=== PATIENT | female | born 1980 | race Caucasian/White ===

== ENCOUNTER 2017-09-24 09:31 | Emergency (ER) | payer MEDICAID, OTHER ==
[2017-09-24 09:42] VITALS: BP 104/51
[2017-09-24 10:06] LABS: Hematocrit 40.1 % (30.3-42.9); Hemoglobin 13.6 gm/dl (10.1-14.3); Mean Corpuscular HGB Conc 34 % (30-34); Mean Corpuscular Hemoglobin 31 pg (28-32); Mean Corpuscular Volume 91 fl (79-97); Platelet Count 268 K/mm3 (140-440); Red Blood Count 4.42 M/mm3 (3.65-5.03); Red Cell Distribution Width 13.2 % (13.2-15.2)
[2017-09-24 10:25] LABS: Bacteria,Urine 2+ /HPF (Negative); Bilirubin,Urine NEG (Negative); Blood,Urine NEG (Negative); Mucus,Urine 3+ /HPF; Nitrite,Urine NEG (Negative)
[2017-09-24 10:27] LABS: Alanine Aminotransferase 12 units/L (7-56); Albumin 4.4 g/dL (3.9-5); BUN/Creatinine Ratio 20; Blood Urea Nitrogen 14 mg/dL (7-17); Calcium 9.2 mg/dL (8.4-10.2); Hemolysis Index 8
[2017-09-24 10:28] LABS: Color,Urine Yellow (Yellow)
[2017-09-24 10:41] LABS: Basophils % (Manual) 0 % (0.0-1.8); Eosinophils % (Manual) 0 % (0.0-4.3); RBC Morphology Normal; Total Cells Counted 100
--- NOTE | 2017-09-24 11:01 | Emergency Department Report ---
ED Abdominal Pain HPI - General Chief Complaint: Nausea/Vomiting/Diarrhea Stated Complaint: ABD. PAIN Time Seen by Provider: 09/24/17 10:19 Source: patient Mode of arrival: Ambulatory Limitations: No Limitations - History of Present Illness Initial Comments: Patient is a 24-year-old with a parents emergency room with nausea, vomiting, diarrhea and of the abdominal pain 4-5 days. Patient states she is unable to hold anything down and as soon as she takes by mouth intake she vomits. Patient states the diarrhea was the first symptom. Patient states she had a fever for the first 3 days. Patient states that she has stones in her gallbladder but has not had it removed or treated. Patient states that the abdominal pain is generalized and in all 4 quadrants but pain below her bellybutton in her bilateral lower quadrant is worse. Patient states the pain is better with rest and being nothing by mouth. She states the pain is worse with vomiting. She states the possibility of , LMP - 08/21/2017... Complaint: abdominal pain -: Sudden, days(s) - Related Data Previous Rx's Medication Instructions Recorded Last Taken Type Amoxicillin [Amoxicillin TAB] 875 mg PO BID 10 Days #20 tablet 09/24/17 Unknown Rx Ondansetron [Zofran Odt] 4 mg PO Q8HR PRN #20 tab.rapdis 09/24/17 Unknown Rx Allergies Allergy/AdvReac Type Severity Reaction Status Date / Time No Known Allergies Allergy Unverified 09/13/16 14:18 ED Review of Systems ROS: Stated complaint: ABD. PAIN Other details as noted in HPI Constitutional: fever. denies: chills Eyes: denies: eye pain, eye discharge, vision change ENT: denies: ear pain, throat pain Respiratory: denies: cough, shortness of breath, wheezing Cardiovascular: denies: chest pain, palpitations Endocrine: no symptoms reported Gastrointestinal: abdominal pain, nausea, vomiting, diarrhea Genitourinary: denies: urgency, dysuria, discharge Musculoskeletal: denies: back pain, joint swelling, arthralgia Skin: denies: rash, lesions Neurological: denies: headache, weakness, paresthesias Psychiatric: denies: anxiety, depression Hematological/Lymphatic: denies: easy bleeding, easy bruising ED Past Medical Hx - Past Medical History Previous Medical History?: No - Surgical History Past Surgical History?: Yes Additional Surgical History: - Family History Family history: hypertension - Social History Smoking Status: Current Some Day Smoker Substance Use Type: None - Medications Home Medications: Home Medications Medication Instructions Recorded Confirmed Last Taken Type Amoxicillin [Amoxicillin TAB] 875 mg PO BID 10 Days #20 tablet 09/24/17 Unknown Rx Ondansetron [Zofran Odt] 4 mg PO Q8HR PRN #20 tab.rapdis 09/24/17 Unknown Rx ED Physical Exam - General Limitations: No Limitations General appearance: alert, in no apparent distress - Head Head exam: Present: atraumatic, normocephalic - Eye Eye exam: Present: normal appearance - ENT ENT exam: Present: mucous membranes moist - Neck Neck exam: Present: normal inspection - Respiratory Respiratory exam: Present: normal lung sounds bilaterally. Absent: respiratory distress - Cardiovascular Cardiovascular Exam: Present: regular rate, normal rhythm. Absent: systolic murmur, diastolic murmur, rubs, gallop - GI/Abdominal GI/Abdominal exam: Present: soft, tenderness (tenderness in all 4 quadrants), normal bowel sounds - Extremities Exam Extremities exam: Present: normal inspection - Back Exam Back exam: Present: normal inspection - Neurological Exam Neurological exam: Present: alert, oriented X3 - Psychiatric Psychiatric exam: Present: normal affect, normal mood - Skin Skin exam: Present: warm, dry, intact, normal color. Absent: rash ED Course Vital Signs 09/24/17 09:39 Temperature 97.8 F Pulse Rate 82 Respiratory 16 Rate Blood Pressure 104/51 O2 Sat by Pulse 99 Oximetry ED Medical Decision Making - Lab Data Result diagrams: 09/24/17 09:54 09/24/17 09:54 - Radiology Data Radiology results: report reviewed Stat abdominal ultrasound within normal limits with no acute findings. Transvaginal OB ultrasound positive for intrauterine at 5 weeks 5 days with cardiac activity. - Medical Decision Making All labs and diagnostics reviewed and I discussed with patient. Urine positive for UTI. She is stable for discharge. Patient instructed to take meds as directed and follow-up with PCP and CHECKOUT OPERATOR as soon as possible. Patient increase water and start vitamin. - Differential Diagnosis uti, abd pain, . Critical care attestation.: If time is entered above; I have spent that time in minutes in the direct care of this critically ill patient, excluding procedure time. ED Disposition Clinical Impression: Fever, Abdominal pain, Nausea vomiting and diarrhea, , Gastroenteritis Disposition: [id number] TO HOME OR SELFCARE Is pt being admited?: No Does the pt Need Aspirin: No Condition: Stable Instructions: (ED), Urinary Tract Infection in Women (ED), Acute Nausea and Vomiting (ED), Abdominal Pain (ED) Additional Instructions: Patient follow up with PCP and CHECKOUT OPERATOR within 3-5 days. Patient to take Tylenol when necessary. No NSAIDs. Patient to return to ER if condition worsens. She did take prescription medication as directed. Increase water. He is to start vitamin. Prescriptions: Amoxicillin [Amoxicillin TAB] 875 mg PO BID 10 Days #20 tablet Ondansetron [Zofran Odt] 4 mg PO Q8HR PRN #20 tab.rapdis PRN Reason: Nausea And Vomiting Referrals: UNIQUE ANDRADE MD [Primary Care Provider] - 3-5 Days Time of Disposition: 15:35
[2017-09-24 11:27] LABS: Lipase 24 units/L (13-60)
--- NOTE | 2017-09-24 13:41 | Ultrasound Report ---
FINAL REPORT PROCEDURE: US ABDOMEN COMPLETE TECHNIQUE: Real-time sonography in multiple planes of the abdomen was performed with image documentation. CPT 52221 HISTORY: abd pain COMPARISON: No prior studies are available for comparison. FINDINGS: Liver: Normal size and echotexture with no evidence of cystic or solid mass lesions. Gallbladder: Fluid filled. No gallstones, wall thickening, pericholecystic fluid, or sonographic Rivera's sign. Intrahepatic bile ducts: Normal caliber . Extrahepatic bile ducts: Common bile duct measures 3 millimeters in caliber. Pancreas: Normal as visualized with suboptimal depiction of the pancreatic tail. IVC: Visualized portions appear normal. RIGHT kidney: Right renal cortical echogenicity is isoechoic to the liver which can be normal variant or related to medical renal disease. No focal renal mass, calculus, or hydronephrosis. Length: 10.4cm. LEFT kidney: No focal renal mass, calculus, or hydronephrosis . Length: 11.3cm. Spleen: Normal size and echotexture. No focal lesions. Intraperitoneal fluid: None . Other: None . IMPRESSION: No acute abnormality. Renal cortical echogenicity is isoechoic to the liver, which can be normal variant or related to medical renal disease.
--- NOTE | 2017-09-24 13:47 | Ultrasound Report ---
FINAL REPORT PROCEDURE: US OB TRANSVAGINAL and transabdominal TECHNIQUE: Real-time transabdominal and transvaginal sonography of the uterus, placenta, amniotic fluid, adnexa, and fetus was performed with image documentation. Measurements were obtained to determine age/size. M-mode Doppler was used to document heartbeat. CPT 34587 and 34898 HISTORY: abd pain, pos hcg COMPARISON: 09/13/2016 FINDINGS: ADDITIONAL GESTATION: None. CRL: 2.2 mm, which corresponds to a gestational age of: 5 weeks, 5 days. Yolk Sac: Normal. Embryonic Cardiac Activity: 98 Gestational Sac: Normal. Amniotic fluid: Normal. Cervix: Nabothian cysts are noted. No endocervical fluid or funneling is noted. No measurement is obtained Right Ovary: 2.8 centimeter cyst is present. 2.2 centimeter hypoechoic lesion is present, possibly a solid lesion or complex cyst Left Ovary: Normal. IMPRESSION: [place]-rump length is decreased in size compared to the prior study. cardiac activity is identified on the current exam, with a heart rate of 98 beats per minute. Recommend close clinical and sonographic follow-up.
--- NOTE | 2017-09-24 13:47 | Ultrasound Report ---
FINAL REPORT PROCEDURE: US OB TRANSVAGINAL and transabdominal TECHNIQUE: Real-time transabdominal and transvaginal sonography of the uterus, placenta, amniotic fluid, adnexa, and fetus was performed with image documentation. Measurements were obtained to determine age/size. M-mode Doppler was used to document heartbeat. CPT 39981 and 50992 HISTORY: abd pain, pos hcg COMPARISON: 09/13/2016 FINDINGS: ADDITIONAL GESTATION: None. CRL: 2.2 mm, which corresponds to a gestational age of: 5 weeks, 5 days. Yolk Sac: Normal. Embryonic Cardiac Activity: 98 Gestational Sac: Normal. Amniotic fluid: Normal. Cervix: Nabothian cysts are noted. No endocervical fluid or funneling is noted. No measurement is obtained Right Ovary: 2.8 centimeter cyst is present. 2.2 centimeter hypoechoic lesion is present, possibly a solid lesion or complex cyst Left Ovary: Normal. IMPRESSION: [place]-rump length is decreased in size compared to the prior study. cardiac activity is identified on the current exam, with a heart rate of 98 beats per minute. Recommend close clinical and sonographic follow-up. PROCEDURE: TECHNIQUE: HISTORY: COMPARISON: FINDINGS: IMPRESSION:
[2017-09-24] MEDS ORDERED: ZOFRAN ODT PO ONE (15:38)
== END 2017-09-24 15:42 | disposition home or self-care (01) ==
LOC: ED 09:31
DX: O99.611 Diseases of the digestive system complicating pregnancy, first trimester (principal); K52.9 Noninfective gastroenteritis and colitis, unspecified; F17.200 Nicotine dependence, unspecified, uncomplicated; Z3A.01 Less than 8 weeks gestation of pregnancy
CPT/HCPCS: 36415; 76700; 76801; 76817; 80053; 81001; 82150; 83690; 84702; 84703; 85007; 85025; 87400; 99284; Q0162

== ENCOUNTER 2017-10-02 08:23 | Emergency (ER) | payer MEDICAID, OTHER ==
[2017-10-02] MEDS ORDERED: NACL 0.9% 1000 ML 1,000 ML ONE (09:00)
[2017-10-02] MEDS ORDERED: ZOFRAN ONE (09:00)
[2017-10-02] MEDS ORDERED: ZOFRAN IV ONE (09:10)
[2017-10-02] MEDS ORDERED: NACL 0.9% 1000 ML 1,000 ML IV ONE (09:10)
--- NOTE | 2017-10-02 09:29 | Emergency Department Report ---
ED Abdominal Pain HPI - General Chief Complaint: Abdominal Pain Stated Complaint: NAUSEA Time Seen by Provider: 10/02/17 09:30 Source: patient, family Mode of arrival: Ambulatory Limitations: No Limitations - History of Present Illness Initial Comments: Patient here reports that she is having nausea and vomited since 4 AM. She says she's been taking and Zofran for nausea as nauseated vomited with abdominal pain. She says she had lab work and ultrasound done and they told her that she has a urinary tract infection and she was given amoxicillin and Zofran. Patient says she's they can Zofran and she is out of Zofran and she is having nausea. Patient was referred to [facility] which she says she has an appointment with [facility] physician in [place] but she doesn't remember the name but it's for tomorrow. She denies any vaginal bleeding or back pain. Denies any urinary burning frequency urgency. Denies any vaginal discharge. She is also complaining of some dizziness and cramping into her lower abdomen. Patient appears to be very upset in room. She reports that she is 6 weeks . Noted that patient was here on 09/24/2017 and was seen and treated by attending physician. Denies any fever or chills. Denies any cough. Denies any diarrhea. Patient reports that she has been 6 times and only has 2 child. Patient smokes daily. MD Complaint: abdominal pain -: This morning Location: suprapubic Radiation: none Migration to: no migration Severity: moderate Severity scale (0 -10): 6 Quality: cramping Consistency: intermittent Improves With: nothing Worsens With: nothing Context: other (patient is ) Associated Symptoms: nausea, vomiting. denies: diarrhea, fever, chills, constipation, dysuria, hematemesis, hematochezia, melena, hematuria, anorexia, syncope Treatments Prior to Arrival: other (Zofran) - Related Data LMP Date: 07/24/17 ( at 6 weeks) LMP (females 10-50): Previous Rx's Medication Instructions Recorded Last Taken Type Amoxicillin [Amoxicillin TAB] 875 mg PO BID 10 Days #20 tablet 09/24/17 Unknown Rx Ondansetron [Zofran Odt] 4 mg PO Q8HR PRN #20 tab.rapdis 09/24/17 Unknown Rx Clindamycin (Nf) [Clindamycin VAG 100 mg VG QHS 3 Days #3 supp 10/02/17 Unknown Rx SUPPOS] Metoclopramide [Reglan] 10 mg PO Q8H PRN 4 Days #15 tab 10/02/17 Unknown Rx Miconazole Nitrate [Monistat 3] 1 each VG QAM 3 Days #1 kit 10/02/17 Unknown Rx Nitrofurantoin Monohyd/M-Cryst 100 mg PO Q12H 7 Days #14 capsule 10/02/17 Unknown Rx [Macrobid 100 mg Capsule] Allergies Allergy/AdvReac Type Severity Reaction Status Date / Time No Known Allergies Allergy Unverified 09/13/16 14:18 ED Review of Systems ROS: Stated complaint: NAUSEA Other details as noted in HPI Comment: All other systems reviewed and negative Constitutional: no symptoms reported Eyes: denies: eye pain, eye discharge, vision change ENT: denies: throat pain, congestion Respiratory: no symptoms reported Cardiovascular: denies: chest pain, palpitations, dyspnea on exertion, orthopnea , edema, syncope, paroxysmal nocturnal dyspnea Gastrointestinal: abdominal pain, nausea, vomiting. denies: diarrhea, constipation, hematemesis, melena, hematochezia Genitourinary: denies: urgency, dysuria, frequency, hematuria, discharge, dyspareunia Musculoskeletal: denies: back pain, joint swelling, arthralgia, myalgia Skin: denies: rash Neurological: other (she reports dizziness because she says she is vomiting and not able to keep anything down.). denies: headache, weakness, numbness, paresthesias, confusion, abnormal gait ED Past Medical Hx - Past Medical History Previous Medical History?: No - Surgical History Past Surgical History?: Yes Additional Surgical History: - Family History Family history: no significant - Social History Smoking Status: Current Every Day Smoker Substance Use Type: None - Medications Home Medications: Home Medications Medication Instructions Recorded Confirmed Last Taken Type Amoxicillin [Amoxicillin TAB] 875 mg PO BID 10 Days #20 tablet 09/24/17 Unknown Rx Ondansetron [Zofran Odt] 4 mg PO Q8HR PRN #20 tab.rapdis 09/24/17 Unknown Rx Clindamycin (Nf) [Clindamycin VAG 100 mg VG QHS 3 Days #3 supp 10/02/17 Unknown Rx SUPPOS] Metoclopramide [Reglan] 10 mg PO Q8H PRN 4 Days #15 tab 10/02/17 Unknown Rx Miconazole Nitrate [Monistat 3] 1 each VG QAM 3 Days #1 kit 10/02/17 Unknown Rx Nitrofurantoin Monohyd/M-Cryst 100 mg PO Q12H 7 Days #14 capsule 10/02/17 Unknown Rx [Macrobid 100 mg Capsule] ED Physical Exam - General Limitations: No Limitations General appearance: alert, in no apparent distress - Head Head exam: Present: atraumatic, normocephalic, normal inspection - Eye Eye exam: Present: normal appearance, PERRL, EOMI Pupils: Present: normal accommodation - ENT ENT exam: Present: normal exam, normal orophraynx, mucous membranes moist - Neck Neck exam: Present: normal inspection, full ROM. Absent: tenderness, meningismus, lymphadenopathy, thyromegaly - Respiratory Respiratory exam: Present: normal lung sounds bilaterally. Absent: respiratory distress, chest wall tenderness, accessory muscle use - Cardiovascular Cardiovascular Exam: Present: regular rate, normal rhythm, normal heart sounds. Absent: systolic murmur, diastolic murmur - GI/Abdominal GI/Abdominal exam: Present: soft, normal bowel sounds. Absent: distended, tenderness, guarding, rebound, rigid, organomegaly, mass, bruit, pulsatile mass , hernia - External exam: Present: normal external exam. Absent: erythema, swelling, lesions, lacerations, ecchymosis, bleeding Speculum exam: Present: vaginal discharge, cervical discharge. Absent: normal speculum exam, erythema, vaginal bleeding, foreign body, tissue, laceration Bi-manual exam: Present: normal bi-manual exam. Absent: cervical motion tendernes, adnexal tenderness, adnexal mass, uterine enlargement, uterine tenderness - Expanded Exam Expanded Female exam: Absent: vaginal laceration, tissue present in vagina, herpetic lesions, vulvar erythema, vulvar tenderness, foreign body External exam: Present: normal Amniotic fluid: Present: none Speculum exam: Present: cervical OS closed - Extremities Exam Extremities exam: Present: normal inspection, full ROM, normal capillary refill , other (no clubbing, cyanosis or edema. +2 pulses to all extremities and no neurovascular compromise). Absent: tenderness, pedal edema, joint swelling, calf tenderness - Back Exam Back exam: Present: normal inspection, full ROM. Absent: tenderness, CVA tenderness (R), CVA tenderness (L), muscle spasm, paraspinal tenderness, vertebral tenderness, rash noted - Neurological Exam Neurological exam: Present: alert, oriented X3, normal gait, reflexes normal. Absent: motor sensory deficit - Psychiatric Psychiatric exam: Present: normal mood, anxious (mild anxiety) - Skin Skin exam: Present: warm, dry, intact, normal color. Absent: rash ED Course Vital Signs 10/02/17 10/02/17 08:30 16:07 Temperature 97.6 F 98.6 F Pulse Rate 86 20 L Respiratory 20 Rate Blood Pressure 132/82 Blood Pressure 104/55 [Left] O2 Sat by Pulse 98 99 Oximetry - Reevaluation(s) Reevaluation #1: 10/02/17 10:03 Patient here for nausea and vomiting and abdominal cramping. IV fluid normal saline infusing, patient given Zofran IV in triage here. Labs ordered and white count is elevated at 11.1 with bacterial shift into the left. Patient had UTI when she was last seen here on 09/24/2017 and she was started on amoxicillin by attending physician. Rocephin 1 g IV ordered. Patient is stable at present. Last ultrasound showed that the patient had intrauterine with heart tone at 98 bpm and radiologist recommended close follow-up as previous ultrasound prior to 09/24/2017 patient with heart tone at 138. Chest still did not follow-up with [facility] and she says she has an appointment with [facility] clinic tomorrow but she cannot tell me which clinic. Reevaluation #2: 10/02/17 12:17 Patient's awaiting ultrasound results. Wet prep and gonorrhea, Chlamydia culture collected. Reevaluation #3: 10/02/17 13:49 Patient reports that she feels slightly nauseous. Ultrasound done and still awaiting results. Still awaiting results of wet prep. Patient to receive Reglan 10 mg IV. Reevaluation #4: 10/02/17 15:15 Patient was less then 20% clue cell and will treat with clindamycin suppository for 3 days. She has used and will treat with Vagistat suppository for 3 days. Patient still with uti and was treated with amoxicillin which she says she took all amoxicillin. I discussed the patient that she still has urinary tract infection and will need to be placed on a different antibiotic. Patient was given Reglan and and she is able to tolerate oral liquids. I discussed her ultrasound report and lab results with her. ED Medical Decision Making - Lab Data Result diagrams: 10/02/17 09:20 10/02/17 09:20 Lab Results 10/02/17 10/02/17 10/02/17 Range/Units 09:18 09:20 09:20 WBC 11.8 H (4.5-11.0) K/mm3 RBC 4.20 (3.65-5.03) M/mm3 Hgb 13.2 (10.1-14.3) gm/dl Hct 38.2 (30.3-42.9) % MCV 91 (79-97) fl MCH 31 (28-32) pg MCHC 35 H (30-34) % RDW 13.1 L (13.2-15.2) % Plt Count 251 (140-440) K/mm3 Lymph % (Auto) 8.0 L (13.4-35.0) % Harlan % (Auto) 3.5 (0.0-7.3) % Eos % (Auto) 0.2 (0.0-4.3) % Baso % (Auto) 0.4 (0.0-1.8) % Lymph # 0.9 L (1.2-5.4) K/mm3 Harlan # 0.4 (0.0-0.8) K/mm3 Eos # 0.0 (0.0-0.4) K/mm3 Baso # 0.0 (0.0-0.1) K/mm3 Seg Neutrophils % 87.9 H (40.0-70.0) % Seg Neutrophils # 10.4 H (1.8-7.7) K/mm3 Sodium 137 (137-145) mmol/L Potassium 4.0 (3.6-5.0) mmol/L Chloride 101.9 (98-107) mmol/L Carbon Dioxide 22 (22-30) mmol/L Anion Gap 17 mmol/L BUN 10 (7-17) mg/dL Creatinine 0.7 (0.7-1.2) mg/dL Estimated GFR > 60 ml/min BUN/Creatinine Ratio 14 % Glucose 113 H (65-100) mg/dL Calcium 8.8 (8.4-10.2) mg/dL Total Bilirubin 0.50 (0.1-1.2) mg/dL AST 12 (5-40) units/L ALT 8 (7-56) units/L Alkaline Phosphatase 49 (35-129) units/L Total Protein 6.9 (6.3-8.2) g/dL Albumin 4.0 (3.9-5) g/dL Albumin/Globulin Ratio 1.4 % HCG, Quant (0-4) mIU/mL Urine Color Ila (Yellow) Urine Turbidity Clear (Clear) Urine pH 5.0 (5.0-7.0) Ur Specific Rosenberg 1.023 (1.003-1.030) Urine Protein 100 mg/dl (Negative) mg/dL Urine Glucose (UA) Neg (Negative) mg/dL Urine Ketones 20 (Negative) mg/dL Urine Blood Sm (Negative) Urine Nitrite Neg (Negative) Urine Bilirubin Neg (Negative) Urine Urobilinogen < 2.0 (<2.0) mg/dL Ur Leukocyte Esterase Lg (Negative) Urine WBC (Auto) 77.0 H (0.0-6.0) /HPF Urine RBC (Auto) 14.0 (0.0-6.0) /HPF U Epithel Cells (Auto) 30.0 H (0-13.0) /HPF Urine Bacteria (Auto) 2+ (Negative) /HPF Urine Mucus 3+ /HPF 10/02/17 Range/Units 09:51 WBC (4.5-11.0) K/mm3 RBC (3.65-5.03) M/mm3 Hgb (10.1-14.3) gm/dl Hct (30.3-42.9) % MCV (79-97) fl MCH (28-32) pg MCHC (30-34) % RDW (13.2-15.2) % Plt Count (140-440) K/mm3 Lymph % (Auto) (13.4-35.0) % Harlan % (Auto) (0.0-7.3) % Eos % (Auto) (0.0-4.3) % Baso % (Auto) (0.0-1.8) % Lymph # (1.2-5.4) K/mm3 Harlan # (0.0-0.8) K/mm3 Eos # (0.0-0.4) K/mm3 Baso # (0.0-0.1) K/mm3 Seg Neutrophils % (40.0-70.0) % Seg Neutrophils # (1.8-7.7) K/mm3 Sodium (137-145) mmol/L Potassium (3.6-5.0) mmol/L Chloride (98-107) mmol/L Carbon Dioxide (22-30) mmol/L Anion Gap mmol/L BUN (7-17) mg/dL Creatinine (0.7-1.2) mg/dL Estimated GFR ml/min BUN/Creatinine Ratio % Glucose (65-100) mg/dL Calcium (8.4-10.2) mg/dL Total Bilirubin (0.1-1.2) mg/dL AST (5-40) units/L ALT (7-56) units/L Alkaline Phosphatase (35-129) units/L Total Protein (6.3-8.2) g/dL Albumin (3.9-5) g/dL Albumin/Globulin Ratio % HCG, Quant 32548 H (0-4) mIU/mL Urine Color (Yellow) Urine Turbidity (Clear) Urine pH (5.0-7.0) Ur Specific Rosenberg (1.003-1.030) Urine Protein (Negative) mg/dL Urine Glucose (UA) (Negative) mg/dL Urine Ketones (Negative) mg/dL Urine Blood (Negative) Urine Nitrite (Negative) Urine Bilirubin (Negative) Urine Urobilinogen (<2.0) mg/dL Ur Leukocyte Esterase (Negative) Urine WBC (Auto) (0.0-6.0) /HPF Urine RBC (Auto) (0.0-6.0) /HPF U Epithel Cells (Auto) (0-13.0) /HPF Urine Bacteria (Auto) (Negative) /HPF Urine Mucus /HPF Urine culture pending Wet prep was less than 20% clue cells, positive yeast and negative Trichomonas Gonorrhea ,chlamydia is pending - Radiology Data Radiology results: report reviewed Patient ultrasound with intrauterine which is viable, single. hearts tones detected at 138 bpm. Please refer to radiology section for further detail. - Medical Decision Making ED course: Romina here reports that she was having nausea and vomiting in an abdominal cramp since 4 AM this morning. She was here on 09/24/2017 and was treated with amoxicillin for urinary tract infection and Zofran for nausea and vomiting. Patient says she is here because she doesn't have any more Zofran and at 4:00 in the morning she started having nausea and vomiting and still with abdominal cramping. Patient was not having any vaginal bleed and no vaginal discharge. Patient was referred to [facility] but she said that she has an appointment tomorrow with an [facility] clinic in [place] but she cannot remember the name. IV fluid normal saline started in triage area and patient given Zofran IV and triage area. She received 1 L of normal saline and 4 mg of Zofran. Patient had pelvic exam done with rep prep results for less than 20% clue cell, few yeast and no Trichomonas. Gonorrhea and chlamydia is pending. Patient quantitative hCG is increased then at a normal level. She is at 7 weeks in 2 days per ultrasound. CBC and chemistries stable and urinalysis with patient having urinary tract infection. Urine culture sent and pending I discussed the patient all diagnosis and treatment plan. I discussed with her her lab results and her ultrasound results. Patient was given additional Reglan 10 mg IV which relieved her nausea and she is able to tolerate liquids orally without any nausea or vomiting. Patient given CD along with print out of lab and ultrasound report to bring to her appointment with her in [place] tomorrow. Patient is a daily smoker and she had told me that she had 6 with 2 miscarriages so I emphasized to her that smoking is one of the major causes of miscarriage and she is considered a threatened miscarriage due to her abdominal pain and she is at high risk for having a miscarriage due to smoking. Smoking cessation encouraged. Patient and given Rocephin 1 g I am an emergency room to cover urinary tract infection and she was discharged home on Macrobid for UTI, clindamycin and suppository for bacterial vaginosis and Monistat 3 for yeast vaginitis. Patient discharged home with her to follow up with [facility] tomorrow and I also gave her information on some [facility]. Patient with mild anxiety but she is much calmer prior to discharge. Critical care attestation.: If time is entered above; I have spent that time in minutes in the direct care of this critically ill patient, excluding procedure time. ED Disposition Clinical Impression: UTI (urinary tract infection) in in first trimester, Abdominal pain during in first trimester, Bacterial vaginosis, Yeast infection of the vagina, Threatened miscarriage in early , High risk due to smoking in first trimester, Nicotine abuse, Proteinuria during Disposition: DC-01 TO HOME OR SELFCARE Is pt being admited?: No Does the pt Need Aspirin: No Condition: Stable Instructions: Bacterial Vaginosis (ED), How to Stop Smoking (ED), Urinary Tract Infection in Women (ED), Vulvovaginal Candidiasis (ED), Secondhand Smoke Exposure in Children (ED), Abdominal Pain (ED) Additional Instructions: Please stop smoking as this can put you at high risk for miscarriage Please follow-up with your [facility] and keep your appointment for tomorrow and bring lab results and ultrasound report along with CD with you Increase her fluid intake Take medication for bacterial vaginosis and vaginal yeast Heart medication for urinary tract infection Reglan as needed for nausea and vomiting If you develop, increase in abdominal pain, fever and/or chills, back pain, swelling to extremities, shortness of breath, vaginal bleeding and return to the emergency room. Your urine had some protein which can have negative effect on urine so if you develop swelling and/or shortness of breath return to the emergency room [facility] Prescriptions: Clindamycin (Nf) [Clindamycin VAG SUPPOS] 100 mg VG QHS 3 Days #3 supp Metoclopramide [Reglan] 10 mg PO Q8H PRN 4 Days #15 tab PRN Reason: Nausea And Vomiting Miconazole Nitrate [Monistat 3] 1 each VG QAM 3 Days #1 kit Nitrofurantoin Monohyd/M-Cryst [Macrobid 100 mg Capsule] 100 mg PO Q12H 7 Days # 14 capsule Referrals: your, [facility] [Other] - 10/03/17 Forms: Accompanied Note, Work/School Release Form(ED)
[2017-10-02 09:35] LABS: Basophils % (Auto) 0.4 % (0.0-1.8); Eosinophils % (Auto) 0.2 % (0.0-4.3); Hematocrit 38.2 % (30.3-42.9); Hemoglobin 13.2 gm/dl (10.1-14.3); Lymphocytes # (Auto) 0.9 K/mm3 (1.2-5.4); Mean Corpuscular HGB Conc 35 % (30-34); Mean Corpuscular Hemoglobin 31 pg (28-32); Mean Corpuscular Volume 91 fl (79-97); Monocytes # (Auto) 0.4 K/mm3 (0.0-0.8); Monocytes % (Auto) 3.5 % (0.0-7.3); Platelet Count 251 K/mm3 (140-440); Red Cell Distribution Width 13.1 % (13.2-15.2)
[2017-10-02 09:55] LABS: Bacteria,Urine 2+ /HPF (Negative); Bilirubin,Urine NEG (Negative); Blood,Urine SM (Negative); Color,Urine Amber (Yellow); Mucus,Urine 3+ /HPF; Nitrite,Urine NEG (Negative); Urobilinogen,Urine < 2.0 mg/dL (<2.0)
[2017-10-02 09:57] LABS: Alanine Aminotransferase 8 units/L (7-56); BUN/Creatinine Ratio 14; Blood Urea Nitrogen 10 mg/dL (7-17); Calcium 8.8 mg/dL (8.4-10.2); Hemolysis Index 3
[2017-10-02] MEDS ORDERED: cefTRIAXone 1 GM in NACL 0.9% 20 ML IV NR (11:00)
[2017-10-02] MEDS ORDERED: REGLAN IV ONE (13:47)
--- NOTE | 2017-10-02 13:57 | Ultrasound Report ---
ULTRASOUND OB LESS THAN 14 WEEKS FETUS ULTRASOUND OB TRANSVAGINAL HISTORY: Abdominal cramps during . COMPARISON: 09/24/17. TECHNIQUE: Transabdominal and transvaginal ultrasound with color doppler interrogation. FINDINGS: Uterus: The uterus is anteverted. The uterus measures 13 x 6 x 8 cm. No uterine mass. There are 3 or 4 small nabothian cysts in the cervix measuring up to 7 mm. Endometrium: An intrauterine gestational sac containing a small pole and yolk sac is identified. Heart rate measures 144 beats per minute. Estimated age on ultrasound is 7 weeks, 2 days. Estimated due date of 05/19/18. A small subchorionic hemorrhage is noted along the inferior border of the gestational sac. Right ovary: 4.0 x 1.9 x 3.9 cm. A 2.5 cm right ovarian cyst is identified. Left ovary: 2.9 x 2.2 x 2.9 cm. No pelvic fluid or mass is identified. Normal color doppler interrogation. IMPRESSION: Viable, single intrauterine as outlined above. Small subchorionic hemorrhage. 2.5 cm right ovarian cyst.
[2017-10-02 16:12] VITALS: BP 104/55
== END 2017-10-02 16:18 | disposition home or self-care (01) ==
LOC: ED 08:23
DX: O20.0 Threatened abortion (principal); O23.41 Unspecified infection of urinary tract in pregnancy, first trimester; O23.591 Infection of other part of genital tract in pregnancy, first trimester; O99.331 Smoking (tobacco) complicating pregnancy, first trimester; O12.11 Gestational proteinuria, first trimester; N39.0 Urinary tract infection, site not specified; R10.9 Unspecified abdominal pain; B37.3 Candidiasis of vulva and vagina; Z3A.01 Less than 8 weeks gestation of pregnancy
CPT/HCPCS: 36415; 76801; 76817; 80053; 81001; 84702; 85025; 87076; 87086; 87186; 87210; 87591; 96361; 96365; 96375; 99285; J0696; J2405; J2765; J7030

== ENCOUNTER 2017-12-26 11:49 | Emergency (ER) | payer MEDICAID ==
[2017-12-26 12:00] VITALS: BP 102/63
[2017-12-26 12:53] LABS: Bacteria,Urine 2+ /HPF (Negative); Bilirubin,Urine NEG (Negative); Blood,Urine NEG (Negative); Color,Urine Amber (Yellow); Mucus,Urine 3+ /HPF
[2017-12-26 12:58] LABS: HCG Qualitative,Urine Negative (Negative)
[2017-12-26] MEDS ORDERED: NACL 0.9% 1000 ML 1,000 ML IV ONE (15:56)
[2017-12-26] MEDS ORDERED: TORADOL IV ONE (15:56)
[2017-12-26] MEDS ORDERED: ZOFRAN IV ONE (15:56)
[2017-12-26] MEDS ORDERED: PEPCID IV ONE (15:56)
--- NOTE | 2017-12-26 15:56 | Emergency Department Report ---
Blank Doc - Documentation Documentation: Patient is a 37-year-old female who is presenting with 3 days of diffuse abdominal pain with nausea vomiting diarrhea. Patient denies any fever or urinary symptoms. Patient states the pain is crampy in nature and constant and is worse in the epigastrium but is present in the bilateral lower quadrants as well. Patient denies .
[2017-12-26 17:06] LABS: Basophils % (Auto) 0.4 % (0.0-1.8); Eosinophils % (Auto) 0.1 % (0.0-4.3); Hemoglobin 13.8 gm/dl (10.1-14.3); Lymphocytes # (Auto) 1.4 K/mm3 (1.2-5.4); Lymphocytes % (Auto) 14.4 % (13.4-35.0); Mean Corpuscular HGB Conc 34 % (30-34); Mean Corpuscular Hemoglobin 31 pg (28-32); Mean Corpuscular Volume 89 fl (79-97); Monocytes # (Auto) 0.3 K/mm3 (0.0-0.8); Monocytes % (Auto) 3.4 % (0.0-7.3); Platelet Count 292 K/mm3 (140-440); Red Blood Count 4.47 M/mm3 (3.65-5.03); Red Cell Distribution Width 14.3 % (13.2-15.2)
--- NOTE | 2017-12-26 17:30 | Emergency Department Report ---
ED Abdominal Pain HPI - General Chief Complaint: Abdominal Pain Stated Complaint: STOMACH PAIN Time Seen by Provider: 12/26/17 15:45 Source: patient Mode of arrival: Wheelchair Limitations: No Limitations - History of Present Illness Initial Comments: This is a 37-year-old female nontoxic, well nourished in appearance, no acute signs of distress presents to the ED with c/o of diffuse abdominal pain with nausea, vomiting and diarrhea x3 days. Patient stated in . She was diagnosed with gallstone. Patient describes abdominal pain as cramping and aching diffusely. Patient stated that symptoms has resolved after receiving zofran in the EMS truck. Patient denies any chest pain, shortness of breathe, fever, chills, stiff neck, headache, numbness, tingling. Patient denies any recent travels or long car rides. Patient denies any allergies or PMH. Patient denies any allergies or PMH. MD Complaint: abdominal pain -: days(s) (3) Location: diffuse Radiation: none Migration to: no migration Severity: mild Severity scale (0 -10): 8 Quality: cramping, aching Consistency: now resolved Improves With: nothing Worsens With: nothing Associated Symptoms: nausea, vomiting, diarrhea. denies: fever, chills, constipation, dysuria, hematemesis, hematochezia, melena, hematuria, anorexia, syncope - Related Data Previous Rx's Medication Instructions Recorded Last Taken Type Amoxicillin [Amoxicillin TAB] 875 mg PO BID 10 Days #20 tablet 09/24/17 Unknown Rx Ondansetron [Zofran Odt] 4 mg PO Q8HR PRN #20 tab.rapdis 09/24/17 Unknown Rx Clindamycin (Nf) [Clindamycin VAG 100 mg VG QHS 3 Days #3 supp 10/02/17 Unknown Rx SUPPOS] Metoclopramide [Reglan] 10 mg PO Q8H PRN 4 Days #15 tab 10/02/17 Unknown Rx Miconazole Nitrate [Monistat 3] 1 each VG QAM 3 Days #1 kit 10/02/17 Unknown Rx Nitrofurantoin Monohyd/M-Cryst 100 mg PO Q12H 7 Days #14 capsule 10/02/17 Unknown Rx [Macrobid 100 mg Capsule] Allergies Allergy/AdvReac Type Severity Reaction Status Date / Time No Known Allergies Allergy Verified 12/26/17 11:57 ED Review of Systems ROS: Stated complaint: STOMACH PAIN Other details as noted in HPI Constitutional: denies: chills, fever Eyes: denies: eye pain, eye discharge, vision change ENT: denies: ear pain, throat pain Respiratory: denies: cough, shortness of breath, wheezing Cardiovascular: denies: chest pain, palpitations Endocrine: no symptoms reported Gastrointestinal: abdominal pain, nausea, vomiting, diarrhea. denies: constipation Genitourinary: denies: urgency, dysuria, discharge Musculoskeletal: denies: back pain, joint swelling, arthralgia Skin: denies: rash, lesions Neurological: denies: headache, weakness, paresthesias Psychiatric: denies: anxiety, depression Hematological/Lymphatic: denies: easy bleeding, easy bruising ED Past Medical Hx - Surgical History Additional Surgical History: - Social History Smoking Status: Current Every Day Smoker Substance Use Type: None - Medications Home Medications: Home Medications Medication Instructions Recorded Confirmed Last Taken Type Amoxicillin [Amoxicillin TAB] 875 mg PO BID 10 Days #20 tablet 09/24/17 Unknown Rx Ondansetron [Zofran Odt] 4 mg PO Q8HR PRN #20 tab.rapdis 09/24/17 Unknown Rx Clindamycin (Nf) [Clindamycin VAG 100 mg VG QHS 3 Days #3 supp 10/02/17 Unknown Rx SUPPOS] Metoclopramide [Reglan] 10 mg PO Q8H PRN 4 Days #15 tab 10/02/17 Unknown Rx Miconazole Nitrate [Monistat 3] 1 each VG QAM 3 Days #1 kit 10/02/17 Unknown Rx Nitrofurantoin Monohyd/M-Cryst 100 mg PO Q12H 7 Days #14 capsule 10/02/17 Unknown Rx [Macrobid 100 mg Capsule] ED Physical Exam - General Limitations: No Limitations General appearance: alert, in no apparent distress - Head Head exam: Present: atraumatic, normocephalic - Eye Eye exam: Present: normal appearance Pupils: Present: normal accommodation - ENT ENT exam: Present: normal exam, mucous membranes moist - Neck Neck exam: Present: normal inspection, full ROM. Absent: tenderness, meningismus - Respiratory Respiratory exam: Present: normal lung sounds bilaterally. Absent: respiratory distress, wheezes, rales, rhonchi, stridor - Cardiovascular Cardiovascular Exam: Present: regular rate, normal rhythm, normal heart sounds. Absent: bradycardia, tachycardia, irregular rhythm, systolic murmur, diastolic murmur, rubs, gallop - GI/Abdominal GI/Abdominal exam: Present: soft, tenderness (diffuse), normal bowel sounds. Absent: distended, guarding, rebound, rigid, diminished bowel sounds - Expanded GI/Abdominal Exam Expanded GI/Abdominal exam: Absent: psoas sign, obturator sign, heel tap sign, Rivera's sign, Rovsing's sign, tenderness at Mcbur[place]'s Point, ascites - Rectal Rectal exam: Present: deferred - Extremities Exam Extremities exam: Present: normal inspection, full ROM, normal capillary refill. Absent: tenderness - Back Exam Back exam: Present: normal inspection, full ROM. Absent: tenderness, CVA tenderness (R), CVA tenderness (L), muscle spasm, paraspinal tenderness, vertebral tenderness, rash noted - Neurological Exam Neurological exam: Present: alert, oriented X3, normal gait - Psychiatric Psychiatric exam: Present: normal affect, normal mood - Skin Skin exam: Present: warm, dry, intact, normal color. Absent: rash ED Course Vital Signs 12/26/17 11:58 Temperature 98 F Pulse Rate 80 Respiratory 18 Rate Blood Pressure 102/63 O2 Sat by Pulse 100 Oximetry - Reevaluation(s) Reevaluation #1: 12/26/17 17:36 Patient is speaking in full sentences with no signs of distress noted. Reevaluation #2: 12/26/17 18:00 Patient is not in the room and was called by RN multiple times to phone listed with no answer. ED Medical Decision Making - Lab Data Result diagrams: 12/26/17 16:13 12/26/17 16:13 - Medical Decision Making Patient left without telling anyone. Patient was called multiple times with number listed by RN with no answer. Critical care attestation.: If time is entered above; I have spent that time in minutes in the direct care of this critically ill patient, excluding procedure time. ED Disposition Clinical Impression: Abdominal pain Qualifiers: Abdominal location: unspecified location Qualified Code(s): R10.9 - Unspecified abdominal pain Disposition: DC-07 LEFT AGAINST MED ADVICE Is pt being admited?: No Condition: Stable
[2017-12-26 17:41] LABS: Alanine Aminotransferase 8 units/L (7-56); Albumin 4.1 g/dL (3.9-5); BUN/Creatinine Ratio 16; Blood Urea Nitrogen 11 mg/dL (7-17); Calcium 8.8 mg/dL (8.4-10.2); Hemolysis Index 2
== END 2017-12-26 18:12 | disposition left against medical advice (07) ==
LOC: ED 11:49
DX: R10.9 Unspecified abdominal pain (principal); F17.200 Nicotine dependence, unspecified, uncomplicated
CPT/HCPCS: 36415; 80053; 81001; 81025; 85025; 99283